=== PATIENT | female | born 1995 | race Hispanic/Latino ===

== ENCOUNTER 2016-09-14 19:11 | Emergency (ER) | payer OTHER ==
[~2016-09-14] VITALS: Ht 152.4 cm; Wt 60.3 kg
[2016-09-14] MEDS ORDERED: LIDOCAINE 1% MDV 20ML VIAL As Ordered ONE (20:13)
[2016-09-14] MEDS ORDERED: AUGM500T34 PO (20:35)
[2016-09-14] MEDS ORDERED: TRAM50TA2 PO (20:37)
[2016-09-14 20:42] VITALS: BP 132/70
== END 2016-09-14 21:04 | disposition home or self-care (01) ==
LOC: M ED 20:47
DX: L60.0 Ingrowing nail (principal)

== ENCOUNTER 2018-06-13 16:02 | Emergency (ER) | payer OTHER ==
[~2018-06-13] VITALS: Ht 152.4 cm; Wt 50.0 kg
[~2018-06-13 16:02] MED LIST: AUGM500T34 PO; TRAM50TA2 PO
[2018-06-13 16:51] LABS: BASO # 0.1 10^3/uL (0.0-0.2); BASO % 0.5 % (0.0-1.0); EOS # 0.1 10^3/uL (0.0-0.50); EOS % 1.2 % (0.0-3.0); HEMATOCRIT 40.1 % (36.0-47.0); LYMPH # 2.3 10^3/uL (1.5-6.5); LYMPH % 19.3 % (24.0-44.0); MEAN CORPUSCULAR HEMOGLOBIN 28.8 pg (27.0-33.0); MEAN CORPUSCULAR HGB CONC 32.4 g/dl (32.0-36.5); MEAN CORPUSCULAR VOLUME 88.7 fl (80.0-96.0); MONO # 0.7 10^3/uL (0.0-0.8); MONO % 5.8 % (0.0-5.0); NEUTROPHILS # 8.6 10^3/uL (1.8-7.7); NEUTROPHILS % 72.9 % (36.0-66.0); PLATELET COUNT, AUTOMATED 290 10^3/uL (150-450); RED BLOOD COUNT 4.52 10^6/uL (4.00-5.40); WHITE BLOOD COUNT 11.8 10^3/uL (4.0-10.0)
[2018-06-13 17:08] LABS: HCG, SERUM QUALITATIVE NEGATIVE (NEGATIVE)
[2018-06-13 17:13] LABS: ALBUMIN 3.9 GM/DL (3.2-5.2); ALT/SGPT 15 U/L (12-78); BILIRUBIN,DIRECT 0.1 MG/DL (0.0-0.2); BILIRUBIN,TOTAL 0.3 MG/DL (0.2-1.0); BLOOD UREA NITROGEN 10 MG/DL (7-18); CALCIUM LEVEL 8.9 MG/DL (8.5-10.1); CARBON DIOXIDE LEVEL 30 MEQ/L (21-32); CHLORIDE LEVEL 106 MEQ/L (98-107); CREATININE FOR GFR 0.64 MG/DL (0.55-1.30); GLOMERULAR FILTRATION RATE > 60.0 (>60); GLUCOSE, FASTING 95 MG/DL (70-100); LIPASE 129 U/L (73-393); SODIUM LEVEL 141 MEQ/L (136-145); TOTAL PROTEIN 7.1 GM/DL (6.4-8.2)
[2018-06-13] MEDS ORDERED: ISOVUE-370 76% 100ML VIAL (Q9967) As Ordered ONE (17:54)
[2018-06-13] MEDS ORDERED: ONDANSETRON 4MG/2ML VIAL (J2405) IV ONE (18:00)
[2018-06-13] MEDS ORDERED: NS 1,000 ML IV ONE (18:00)
[2018-06-13] MEDS ORDERED: MORPHINE 4 MG/ML 1ML VIAL/SYRINGE (J2270) IV ONE (18:00)
--- NOTE | 2018-06-13 19:13 | REPVR ---
EXAM: CT Abdomen and Pelvis With Contrast EXAM DATE/TIME: 06/13/2018 6:19 PM CLINICAL HISTORY: 22 years old, female; Pain; Abdominal pain; Localized; Right; Additional info: Right abd pain, leukocytosis TECHNIQUE: Axial computed tomography images of the abdomen and pelvis with intravenous contrast. All CT scans at this facility use at least one of these dose optimization techniques: automated exposure control; mA and/or kV adjustment per patient size (includes targeted exams where dose is matched to clinical indication); or iterative reconstruction. Coronal and sagittal reformatted images were created and reviewed. CONTRAST: 100 ml of ISOVUE 370 administered intravenously. COMPARISON: No relevant prior studies available. FINDINGS: Lower thorax: No acute findings. ABDOMEN: Liver: There is a diffuse decrease in hepatic parenchymal density, consistent with fatty infiltration. Gallbladder and bile ducts: Normal. No calcified stones. No ductal dilation. Pancreas: Normal. No ductal dilation. Spleen: Normal. No splenomegaly. Adrenals: Normal. No mass. Kidneys and ureters: Normal. No hydronephrosis. Stomach and bowel: There is increased feces throughout the colon consistent with constipation. Appendix: Normal appendix. PELVIS: Bladder: Unremarkable as visualized. Reproductive: Unremarkable as visualized. ABDOMEN and PELVIS: Intraperitoneal space: Normal. No free air. No significant fluid collection. Bones/joints: Sclerotic focus right sacral ala likely benign. Soft tissues: Unremarkable. Vasculature: Normal. No abdominal aortic aneurysm. Lymph nodes: Normal. No enlarged lymph nodes. IMPRESSION: 1. There is a diffuse decrease in hepatic parenchymal density, consistent with fatty infiltration. 2. Normal appendix. 3. There is increased feces throughout the colon consistent with constipation. Electronically signed by: Tyler Bolaños On 06/13/2018 19:13:08 PM
[2018-06-13] MEDS ORDERED: DULC10SU2 PR (19:32)
[2018-06-13] MEDS ORDERED: MIRA3350 PO (19:32)
[2018-06-13] MEDS ORDERED: COLA100C5 PO (19:32)
[2018-06-13 19:44] VITALS: BP 134/82
== END 2018-06-13 19:56 | disposition home or self-care (01) ==
LOC: M ED 16:02
DX: K59.00 Constipation, unspecified (principal)
CPT/HCPCS: 74177; 80048; 80076; 81001; 83690; 84703; 85025; 87088; 87186; 96361; 96374; 96375; 99284; J2270; J2405; Q9967

== ENCOUNTER → 2018-08-22 | Outpatient (REF) | payer OTHER ==
[~2018-08-22] MED LIST changes: +COLA100C5 PO; +DULC10SU2 PR; +MIRA3350 PO
[2018-08-22 12:56] LABS: HEMATOCRIT 37.4 % (36.0-47.0); HEMOGLOBIN 12.1 g/dl (12.0-15.5); MEAN CORPUSCULAR HEMOGLOBIN 28.5 pg (27.0-33.0); MEAN CORPUSCULAR HGB CONC 32.4 g/dl (32.0-36.5); PLATELET COUNT, AUTOMATED 279 10^3/uL (150-450); RED BLOOD COUNT 4.25 10^6/uL (4.00-5.40); WHITE BLOOD COUNT 14.4 10^3/uL (4.0-10.0)
[2018-08-22 13:12] LABS: HCG, SERUM QUANTITATIVE 114448 MIU/ML
[2018-08-23 10:03] LABS: RUBELLA IgG QUALITATIVE IMMUNE (IMMUNE)
[2018-08-23 10:31] LABS: HEPATITIS C VIRUS ABY INDEX 0.1 INDEX (<0.8)
[2018-08-23 10:32] LABS: HIV 1&2 SCREEN CENTAUR NEGATIVE (NEGATIVE)
== END ==
LOC: M LAB REF 12:22
PROVIDERS: ATTEND Nurse Practitioner Women's Health
DX: Z32.01 Encounter for pregnancy test, result positive (principal); O36.80X0 Pregnancy with inconclusive fetal viability, not applicable or unspecified; Z3A.00 Weeks of gestation of pregnancy not specified

== ENCOUNTER → 2018-11-01 | Outpatient (REF) | payer OTHER ==
[2018-11-02 16:01] LABS: CHLAMYDIA DNA AMPLIFICATION NEGATIVE (NEGATIVE); GC DNA AMPLIFICATION NEGATIVE (NEGATIVE)
== END ==
LOC: M LAB REF 12:57
PROVIDERS: ATTEND Advanced Practice Midwife
DX: Z34.82 Encounter for supervision of other normal pregnancy, second trimester (principal)

== ENCOUNTER → 2018-11-14 | Outpatient (CLI) | payer OTHER ==
--- NOTE | 2018-11-14 22:26 | REP ---
Clinical: Anatomical evaluation. Comparison: None . Findings: Examination demonstrates a single live intrauterine in transverse (head to maternal left) presentation. motion is identified by technologist. Placenta is noted anterior and grade zero without evidence for placenta previa or abruption. Amniotic fluid volume is normal. Cervix measures 3.8 cm in length and appears closed. No evidence for nuchal cord. Gestational age by LMP 20 weeks 1 day with KYARA 04[birth year]02[birth year]1990 . Gestational age by current measurements 20 weeks 0 days with KYARA 04/03/2019 . FHR equals 138 beats per minute. BPD 4.4 cm 19 weeks 2 days HC 17.0 cm 19 weeks 4 days AC 15.6 cm 20 weeks 5 days FL 3.2 cm 20 weeks 0 days HL 3.1 cm 20 weeks 2 days HC/AC ratio 1.09 Estimated weight 345 grams ( 54 percentile). Anatomical assessment demonstrates normal structures including cranium, choroid plexus, cavum, cerebellum/posterior fossa, facial features, lungs, four-chamber heart/ventricular outflow tracts, diaphragm, stomach, cord insertion/three-vessel cord, kidneys/bladder, spine, and extremities. Impression: Single live intrauterine in transverse lie demonstrating appropriate interval growth. Anatomical assessment is complete and normal. Electronically Signed by Dariel Suarez MD 11/14/2018 10:19 P
== END ==
LOC: M RAD 12:34
PROVIDERS: ATTEND Advanced Practice Midwife
DX: O32.2XX0 Maternal care for transverse and oblique lie, not applicable or unspecified (principal); Z36.89 Encounter for other specified antenatal screening; Z3A.20 20 weeks gestation of pregnancy

== ENCOUNTER → 2019-01-29 | Outpatient (CLI) | payer OTHER ==
[2019-01-29 11:04] LABS: BASO # 0.1 10^3/uL (0.0-0.2); BASO % 0.4 % (0.0-1.0); EOS # 0.1 10^3/uL (0.0-0.5); EOS % 0.6 % (0.0-3.0); HEMATOCRIT 29.5 % (36.0-47.0); HEMOGLOBIN 9.4 g/dl (12.0-15.5); LYMPH # 1.5 10^3/uL (1.5-5.0); LYMPH % 10.9 % (24.0-44.0); MEAN CORPUSCULAR HEMOGLOBIN 27.9 pg (27.0-33.0); MEAN CORPUSCULAR HGB CONC 31.9 g/dl (32.0-36.5); MEAN CORPUSCULAR VOLUME 87.5 fl (80.0-96.0); MONO # 0.8 10^3/uL (0.0-0.8); MONO % 5.6 % (0.0-5.0); NEUTROPHILS % 80.2 % (36.0-66.0); PLATELET COUNT, AUTOMATED 236 10^3/uL (150-450); RED BLOOD COUNT 3.37 10^6/uL (4.00-5.40); WHITE BLOOD COUNT 13.7 10^3/uL (4.0-10.0)
== END ==
LOC: M LAB 09:28
PROVIDERS: ATTEND Advanced Practice Midwife
DX: Z34.82 Encounter for supervision of other normal pregnancy, second trimester (principal); Z3A.00 Weeks of gestation of pregnancy not specified

== ENCOUNTER → 2019-02-27 | Outpatient (CLI) | payer OTHER ==
[2019-02-27 18:14] LABS: HEMATOCRIT 34.3 % (36.0-47.0); HEMOGLOBIN 10.9 g/dl (12.0-15.5); MEAN CORPUSCULAR HEMOGLOBIN 27.3 pg (27.0-33.0); MEAN CORPUSCULAR HGB CONC 31.8 g/dl (32.0-36.5); PLATELET COUNT, AUTOMATED 232 10^3/uL (150-450); RED BLOOD COUNT 3.99 10^6/uL (4.00-5.40); WHITE BLOOD COUNT 12.9 10^3/uL (4.0-10.0)
== END ==
LOC: M SMT 15:12
PROVIDERS: ATTEND Advanced Practice Midwife
DX: O99.013 Anemia complicating pregnancy, third trimester (principal); Z3A.00 Weeks of gestation of pregnancy not specified

== ENCOUNTER → 2019-02-28 | Outpatient (CLI) | payer OTHER ==
--- NOTE | 2019-02-28 08:24 | REP ---
Clinical: Anatomical evaluation. Comparison: 11/14/2018 . Findings: Examination demonstrates a single live intrauterine in cephalic presentation. motion is identified by technologist. Placenta is noted anterior and grade I I I without evidence for placenta previa or abruption. Amniotic fluid volume is lower limits of normal. Cervix appears closed. No evidence for nuchal cord. Gestational age by LMP 35 weeks 2 days with KYARA 04/02/2019 . Gestational age by current measurements 35 weeks 3 days with KYARA 04/01/2019 . FHR equals 133 beats per minute. BPD 8.5 cm 34 weeks 2 days HC 30.3 cm 33 weeks 4 days AC 33.5 cm 37 weeks 3 days FL 7.1 cm 36 weeks 2 days HC/AC ratio 0.90 Estimated weight 2909 grams ( 68 percentile). Amniotic fluid index: 7.2 cm (7.8 - 24.9) Umbilical cord SD ratio: 2.15 Impression: 1. Single live intrauterine in cephalic presentation demonstrating appropriate interval growth. No gross abnormalities are identified. 2. Amniotic fluid volume is lower limits of normal. Electronically Signed by Dariel Suarez MD 02/28/2019 08:15 A
== END ==
LOC: M RAD 06:35
PROVIDERS: ATTEND Advanced Practice Midwife
DX: Z36.9 Encounter for antenatal screening, unspecified (principal); Z3A.35 35 weeks gestation of pregnancy

== ENCOUNTER → 2019-03-07 | Outpatient (REF) | payer OTHER | LOC: M LAB REF 16:48 | PROVIDERS: ATTEND Advanced Practice Midwife | DX: Z34.83 Encounter for supervision of other normal pregnancy, third trimester (principal) ==

== ENCOUNTER → 2019-03-08 | Outpatient (CLI) | payer OTHER ==
--- NOTE | 2019-03-08 15:03 | REP ---
Clinical: well-being Comparison: 02/28/2019 . Findings: Examination demonstrates a single live intrauterine in cephalic presentation. motion is identified by technologist. Placenta is noted anterior and grade I I without evidence for placenta previa or abruption. Amniotic fluid volume is normal. Cervix measures 3.2 cm in length and appears closed. No evidence for nuchal cord. Gestational age by LMP 36 weeks 3 days with KYARA 04/02/2019 . Gestational age by first US 36 weeks 2 days with KYARA 04/03/2019 . FHR equals 136 beats per minute. Biophysical profile score: 8/8 Amniotic fluid index: 9.5 cm (7.6 724.7) Umbilical cord SD ratio: 2.27 Impression: Single live advanced gestation in cephalic presentation. Biophysical profile score and amniotic fluid volume are normal. Electronically Signed by Dariel Suarez MD 03/08/2019 02:55 P
== END ==
LOC: M RAD 14:08
PROVIDERS: ATTEND Advanced Practice Midwife
DX: O24.410 Gestational diabetes mellitus in pregnancy, diet controlled (principal)

== ENCOUNTER → 2019-03-16 | Outpatient (CLI) | payer OTHER ==
[~2019-03-16] MED LIST changes: +IBUP80TA PO; +IRON65TA2 PO; +PRENTAB9 PO
--- NOTE | 2019-03-16 16:59 | REP ---
Limited obstetric sonography: History: Weekly biophysical profile. Gestational diabetes. Findings: Transabdominal scanning demonstrates a living intrauterine gestation in a cephalic lie. Placenta is anterior grade 2 without evidence of previa or abruption. Closed cervical length is 3.7 cm. heart rate is recorded at 163 beats per minute. Amniotic fluid is subjectively normal. WOODY is normal at 14.8 cm. Biophysical profile score is eight out of a possible eight. SD ratio in the umbilical cord artery by Doppler is normal. Electronically Signed by Danny Kaye MD 03/16/2019 04:50 P
== END ==
LOC: M RAD 15:07
PROVIDERS: ATTEND Advanced Practice Midwife
DX: Z36.9 Encounter for antenatal screening, unspecified (principal); Z3A.37 37 weeks gestation of pregnancy

== ENCOUNTER 2019-03-17 06:19 | Inpatient (IN) | payer OTHER ==
[2019-03-17] VITALS (18 sets, daily range): BP systolic 102–130; BP diastolic 57–82
[~2019-03-17] VITALS: Ht 152.4 cm; Wt 80.1 kg
[~2019-03-17 06:19] MED LIST changes: -IBUP80TA PO; -IRON65TA2 PO; -PRENTAB9 PO
[2019-03-17] MEDS ORDERED: IRON65TA2 PO (06:39)
[2019-03-17] MEDS ORDERED: PRENTAB9 PO (06:39)
[2019-03-17] MEDS ORDERED: LACTATED RINGER'S 1000 ML IV STA (08:01)
[2019-03-17 08:26] LABS: HEMATOCRIT 33.7 % (36.0-47.0); HEMOGLOBIN 10.5 g/dl (12.0-15.5); MEAN CORPUSCULAR HEMOGLOBIN 26.4 pg (27.0-33.0); MEAN CORPUSCULAR HGB CONC 31.2 g/dl (32.0-36.5); MEAN CORPUSCULAR VOLUME 84.7 fl (80.0-96.0); PLATELET COUNT, AUTOMATED 191 10^3/uL (150-450); RED BLOOD COUNT 3.98 10^6/uL (4.00-5.40); WHITE BLOOD COUNT 11.4 10^3/uL (4.0-10.0)
--- NOTE | 2019-03-17 08:42 | HPEPDOC ---
Obstetrical History & Physical General Date of Admission Mar 17, 2019 at 06:19 History of Present Illness Chief Complaint: Induction of labor Information Provided By: Patient Age: 23 : 2 Term: 1 Pre-term: 0 Abortions: 0 Livin Care Care: Good Care Dating Final EDC: Mar 31, 2019 Final EDC by: LMP EGA at Admission: 38 Antepartum Course Height (inches): 58 Pre- weight (lbs.): 122 Admission Weight (lbs.): 178 Past Medical History Past Obstetrical History : Past Obstetrical History: Primgravida (2015) Type of Delivery: Spontaneous Vaginal Del. Sex of Infant: Male (7#6) Complications: Yes (A1GDM) [employer] History: No pertinent history Past Medical History Medical History umbilical hernia Surgical History: Denies/None Family History Significant Family History: No pertinent family hx Social History Marital Status: Family situation: Spouse/partner home Psychosocial History: Anxiety, Depression * Smoker: non-smoker Alcohol: Denies Drugs: other (hx meth prior to April) Imunizations Tdap status: declined Influenza Status: current Allergies Coded Allergies: No Known Allergies (Unverified , 09/14/16) Medications Scheduled Ferrous Sulfate (Iron) 325 Mg Tablet, 1 TAB PO BID No.137/Iron/Folic Acd ( Vitamin Tablet) 1 Each Tablet, 1 TAB PO DAILY Physical Examination Physical Examination GENERAL: Alert and oriented times three. BREAST: . ABDOMEN: Gravid and non-tender to touch. FETUS: Is vertex (VTX) by sterile vaginal examination (SVE), fetus is vertex (VTX) by Waldo. HEART RATE: Regular rate and rhythm. LUNGS: Clear to auscultation (CTA). EXTREMITIES: No edema. No clonus. Deep tendon reflexes (DTRs) + 2. Vital Signs/I&O Vital Signs Date Time Temp Pulse Resp B/P (MAP) Pulse Ox O2 Delivery O2 Flow Rate FiO2 03/17/19 06:47 101 16 118/67 (84) 03/17/19 06:45 98.5 Laboratory Data [facility] Laboratory Tests 2 03/17/19 06:25: Serology Scanned Report Hepatitis B Testing 03/17/19 07:39: CBC/BMP Pertinent Laboratoy Data Blood Type: O+ RBC Antibody Screen: Negative HIV: Negative Hepatitis B: Negative Hepatitis C: Negative Rapid Plasma Reagin: Nonreactive Rubella: Immune Chlamydia/Gonorrhea: Negative Group B Streptococcus: Negative Glucose Tolerance Test: 154 (refused 3hr GTT) Anatomy Ultrasound Ultrasound Date: Nov 14, 2018 Placenta Location: Anterior Normal Anatomy: Yes Placenta Previa: No Estimated Weight (grams): 345 (54%) Other Ultrasounds 08/30/18 dating 9wks KYARA 04/04/19 02/28/19 g/u 68% [id number] 03/08/19 BPP 8/ WOODY 9.5 Steroid Therapy Steroid Therapy: No Vaginal Examination Dilation: 1cm Effacement: 50% Station: -2 Cervical Consistency: Medium Cervical Position: Posterior Presentation: Cephalic presentation Assessment Heart Rate (FHR): 120 Variability: Moderate Accelerations: Positive Tocometer Contractions: Yes Frequency: irregular Duration: less than 60 seconds Strength: palpated as mild Assessment/Plan Assessment Beatrice is a 23-year-old (G)2 para (P)1-0-0-1 at 38+0 weeks by 9-week ultrasound. Presents to Labor and Delivery (L&D) for induction of labor per consult Dr Bill. She refused the 3hr GTT, preferring to test with poorly controlled results. She reports remote hx ICE use, nothing since her move to the area in April 2018. Denies LOF or bleeding. Plan Admit and orient. 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 Group B Streptococcus (GBS) negative. Labs and intravenous (IV) per unit protocol. Q 2hr glucose testing. Counseled on misoprostol, Pitocin and induction of labor (IOL). NS : Bolus 500 mL, then saline lock. Plans epidural for labor management Anticipate normal spontaneous delivery (). C-S as appropriate. Palak Lopes CNM Mar 17, 2019 08:42
[2019-03-17 08:44] LABS: GLUCOSE, FASTING 74 MG/DL (70-100)
[2019-03-17] MEDS ORDERED: SODIUM CHLORIDE 0.9% 1000ML IV ONE (08:45)
[2019-03-17] MEDS: miSOPROStol 50 MCG 1/2 TAB (S0191) PO SCH ×3 (09:10→17:38)
[2019-03-17] MEDS ORDERED: PROMETHAZINE INJ 25 MG/ML VIAL (J2550) IV ONE (12:45)
[2019-03-17] MEDS ORDERED: BUTORPHANOL 2 MG/ML INJ (J0595) IV ONE (12:45)
[2019-03-17] MEDS ORDERED: LR 1,000 ML IV SCH (20:17)
[2019-03-17] MEDS ORDERED: OXYTOCIN DRIP 30 UNITS in IV 1 EA IV SCH (20:30)
[2019-03-17] MEDS ORDERED: FENTANYL 2MCG/ML ROPIVACAINE 0.2% IN 0.9% NACL 100ML IVBAG As Ordered ONE (20:50)
[2019-03-17] MEDS ORDERED: DOCUSATE SODIUM 100 MG CAP PO PRN (21:45)
[2019-03-17] MEDS ORDERED: DIBUCAINE 1% OINTMENT 30GM TOP PRN (21:45)
[2019-03-17] MEDS ORDERED: ACETAMINOPHEN TAB 650MG DOSE (2X325MG) PO PRN (21:45)
[2019-03-17] MEDS ORDERED: ONDANSETRON 4MG/2ML VIAL (J2405) IV PRN (21:45)
[2019-03-17] MEDS ORDERED: MEASLES,MUMPS,RUBELLA VACCINE INJ (MMR-II) (90707) SC SCH (21:45)
[2019-03-17] MEDS ORDERED: OXYTOCIN DRIP 30 UNITS in IV 1 EA IV ONE (21:45)
[2019-03-17] MEDS ORDERED: IBUPROFEN 600 MG TAB PO PRN (21:45)
[2019-03-17] MEDS ORDERED: RHOGAM 300 MCG (1500 IU) INJ (J2790) IM SCH (21:45)
[2019-03-17] MEDS ORDERED: METHYLERGONOVINE MALEATE 0.2 MG TAB PO PRN (21:45)
[2019-03-17] MEDS: IBUPROFEN 800 MG TAB PO PRN (21:55)
[2019-03-18 06:02] VITALS: BP 112/61
--- NOTE | 2019-03-18 07:07 | DN ---
DATE OF DELIVERY: 03/17/2019 PREDELIVERY DIAGNOSIS: 38 weeks, gestational diabetes, labor induction. POSTDELIVERY DIAGNOSIS: Delivered. PROCEDURE: Spontaneous vaginal delivery. LABORATORY MONITOR: Dr. Amrik Bill ANESTHESIA: None. ESTIMATED BLOOD LOSS: 300 mL. FINDINGS: 7 pound 0 ounce female , Apgars 9 and 9. DELIVERY SUMMARY: After a short second stage, the patient had spontaneous delivery of a 7 pound 0 ounce female with Apgars 9 and 9 with no delivery anesthesia. Total length of second stage was no more than 10 minutes. There was no nuchal cord. The shoulders delivered with ease. The infant cried immediately and was handed to the mother. The cord was doubly clamped and cut. The placenta delivered spontaneously and appeared to be intact. The patient received IV Pitocin immediately after delivery of the placenta. There were no vaginal lacerations present. Sponge counts were correct.
[2019-03-18] MEDS: ACETAMINOPHEN 500 MG TAB PO PRN ×2 (07:21→17:09)
[2019-03-18] MEDS: PRENATAL VITAMINS CHEWABLE TABLET PO SCH (09:20)
[2019-03-18] MEDS: IBUPROFEN 800 MG TAB PO PRN ×2 (11:54→20:02)
[2019-03-18 18:00] VITALS: BP 129/60
[2019-03-19] MEDS: ACETAMINOPHEN 500 MG TAB PO PRN (01:40)
[2019-03-19 06:00] VITALS: BP 98/57
[2019-03-19] MEDS: PRENATAL VITAMINS CHEWABLE TABLET PO SCH (09:21)
[2019-03-19] MEDS: IBUPROFEN 800 MG TAB PO PRN (09:22)
[2019-03-19] MEDS ORDERED: IBUP80TA PO (10:19)
== END 2019-03-19 13:00 | disposition home or self-care (01) | DRG 807 ==
LOC: M LDI 06:19 → M OBS 23:04
PROVIDERS: ADMIT Advanced Practice Midwife; ATTEND Specialist
PROC: 10E0XZZ Delivery of Products of Conception, External Approach (ICD-10-PCS; principal; 2019-03-17)
PROC: 3E0P7GC Introduction of Other Therapeutic Substance into Female Reproductive, Via Natural or Artificial Opening (ICD-10-PCS; 2019-03-17)
DX: O24.420 Gestational diabetes mellitus in childbirth, diet controlled (principal); Z37.0 Single live birth; Z3A.38 38 weeks gestation of pregnancy

== ENCOUNTER 2019-05-30 21:00 | Emergency (ER) | payer OTHER ==
[~2019-05-30] VITALS: Ht 152.4 cm; Wt 68.2 kg
[~2019-05-30 21:00] MED LIST changes: +IBUP80TA PO; +IRON65TA2 PO; +PRENTAB9 PO
[2019-05-30 21:01] VITALS: BP 143/88
== END 2019-05-30 22:06 | disposition left against medical advice (07) ==
LOC: M ED 21:00
DX: Z53.21 Procedure and treatment not carried out due to patient leaving prior to being seen by health care provider (principal)

== ENCOUNTER 2019-06-01 14:23 | Emergency (ER) | payer OTHER ==
[~2019-06-01] VITALS: Ht 152.4 cm; Wt 52.3 kg
[2019-06-01 14:23] VITALS: BP 137/96
[2019-06-01 15:07] LABS: BASO # 0.1 10^3/uL (0.0-0.2); BASO % 0.6 % (0.0-1.0); EOS # 0.2 10^3/uL (0.0-0.5); EOS % 1.7 % (0.0-3.0); HEMATOCRIT 38.6 % (36.0-47.0); HEMOGLOBIN 12.4 g/dl (12.0-15.5); LYMPH % 23.6 % (24.0-44.0); MEAN CORPUSCULAR HEMOGLOBIN 26.1 pg (27.0-33.0); MEAN CORPUSCULAR HGB CONC 32.1 g/dl (32.0-36.5); MEAN CORPUSCULAR VOLUME 81.1 fl (80.0-96.0); MONO # 0.6 10^3/uL (0.0-0.8); MONO % 6.9 % (0.0-5.0); NEUTROPHILS # 5.7 10^3/uL (1.5-8.5); NEUTROPHILS % 66.9 % (36.0-66.0); PLATELET COUNT, AUTOMATED 382 10^3/uL (150-450); RED BLOOD COUNT 4.76 10^6/uL (4.00-5.40); WHITE BLOOD COUNT 8.6 10^3/uL (4.0-10.0)
[2019-06-01 15:28] LABS: ALBUMIN 4.3 GM/DL (3.2-5.2); ALT/SGPT 27 U/L (12-78); BILIRUBIN,DIRECT 0.1 MG/DL (0.0-0.2); BILIRUBIN,TOTAL 0.4 MG/DL (0.2-1.0); BLOOD UREA NITROGEN 13 MG/DL (7-18); CALCIUM LEVEL 9.2 MG/DL (8.5-10.1); CARBON DIOXIDE LEVEL 29 MEQ/L (21-32); CHLORIDE LEVEL 108 MEQ/L (98-107); CREATININE FOR GFR 0.74 MG/DL (0.55-1.30); GLOMERULAR FILTRATION RATE > 60.0 (>60); GLUCOSE, FASTING 95 MG/DL (70-100); LIPASE 134 U/L (73-393); POTASSIUM SERUM 3.9 MEQ/L (3.5-5.1); SODIUM LEVEL 142 MEQ/L (136-145); TOTAL PROTEIN 7.7 GM/DL (6.4-8.2)
[2019-06-01] MEDS ORDERED: IBUPROFEN 600 MG TAB PO ONE (15:30)
== END 2019-06-01 15:54 | disposition home or self-care (01) ==
LOC: M ED 14:23
DX: K42.9 Umbilical hernia without obstruction or gangrene (principal)

== ENCOUNTER → 2019-06-29 | Outpatient (CLI) | payer OTHER ==
[~2019-06-29] MED LIST changes: +GASTROGRAFIN SOLUTION 30ML (Q9963) As Ordered ONE; +ISOVUE-370 76% 100ML VIAL (Q9967) As Ordered ONE
--- NOTE | 2019-06-29 17:00 | REP ---
CT of the abdomen and pelvis without and with IV contrast and with bowel contrast for umbilical hernia: Comparison is 06/13/2018. There is a fat-containing umbilical hernia with the peritoneal defect measuring 1.5 cm transversely, and the hernia sac measuring 2.2 cm. The hernia protrudes anteriorly 2.6 cm. This was also present on the comparison study. It has slightly increased. The hernia protruded 1.5 cm on the prior study. There is no bowel within the hernia sac. The visualized lung perez are unremarkable. The hepatic parenchyma is homogeneous on both phases of the study and appears to be similar in density to the spleen. There are no focal hepatic masses. The gallbladder, pancreas and spleen are normal size and unremarkable. The adrenals, kidneys and abdominal aorta are unremarkable. There is no periaortic adenopathy or mass. The bowel and mesentery are unremarkable. Pelvis: The appendix and terminal ileum are unremarkable. The uterus is unremarkable. There are follicles in the adnexa bilaterally. There is no dominant adnexal mass or cyst. There is no pelvic ascites or adenopathy. The bladder is unremarkable. Impression: There is a fat-containing umbilical hernia as described. There is no bowel within the hernia sac. Otherwise, negative CT of the abdomen and pelvis. Electronically Signed by Bertin Kirkpatrick MD 06/29/2019 04:51 P
== END ==
LOC: M RAD 14:36
PROVIDERS: ATTEND Family Medicine
DX: K42.9 Umbilical hernia without obstruction or gangrene (principal)